=== PATIENT | male | born 1980 | race Caucasian/White ===

== ENCOUNTER 2021-11-13 06:18 | Day surgery (SDC) | payer BC ==
[~2021-11-13 06:18] MED LIST: Lactated Ringers 1,000 ML IV SCH
[2021-11-13] MEDS ORDERED: Propofol 200 MG/20 ML SDV ONE (07:27)
[2021-11-13] MEDS ORDERED: fentaNYL 100 MCG/2 ML SDV ONE (07:27)
== END 2021-11-13 09:05 | disposition home or self-care (01) ==
LOC: MW.SDS 06:18
PROVIDERS: ATTEND Surgery
DX: Z12.11 Encounter for screening for malignant neoplasm of colon (principal); D12.6 Benign neoplasm of colon, unspecified; E78.5 Hyperlipidemia, unspecified; Z98.890 Other specified postprocedural states; Z80.0 Family history of malignant neoplasm of digestive organs; Z87.891 Personal history of nicotine dependence
CPT/HCPCS: 45385; J2704; J3010; J7120; 00812